=== PATIENT | female | born 1970 | race Caucasian/White ===

== ENCOUNTER 2016-05-15 13:16 | Day surgery (SDC) | payer OTHER ==
[~2016-05-15 13:16] MED LIST: APRACLONIDINE HCL 50 DROP BTL LEFTEYE PRN; HYPROMELLOSE 150 DROP BTL LEFTEYE PRN; TETRACAINE HCL 150 DROP BTL LEFTEYE PRN
--- OUTSIDE RECORDS SUMMARY | 2016-05-15 13:20 | XMS REPORT | Continuity of Care Document ---
:1970 Author Organization [facility] ([facility]) Address [address] [place] [address] Phone [phone] Care Team Providers Name Role Phone Melissa [facility] Primary Care Provider + [phone] Source Comments This disclosure is being made pursuant to the Care Everywhere program, applicable federal and state laws, and may not contain all informaitonavailable regarding this patient.[facility] ([facility]) Active Allergies and Adverse Reactions Allergen Noted Date Severity Reactions Comments Gabapentin 04/26/2015 Pruritus Nifedipine 07/18/2013 OTHER Leg swelling/"burned from inside out"/ redness Current Medications Prescription Sig. Disp. Refills Start Date End Date Status naproxen 500 mg tablet Take 1 Tab by mouth 2 60 Tab 4 12/24/2012 Active times daily with meals as needed. Take instead of ibuprofen. Indications: PAIN pantoprazole 40 mg EC Take 1 Tab by mouth 60 Tab 2 12/24/2012 Active tablet Every morning. Indications: GASTROESOPHAGEAL REFLUX traMADol 50 mg tablet 1 04/22/2015 Active DEX[address] 5 03/21/2015 Active capsule PARoxetine 20 mg tablet 3 03/26/2015 Active cyclobenzaprine 10 mg 5 04/22/2015 Active tablet nortriptyline 25 mg 50 mg. 2 04/04/2015 Active capsule nortriptyline 10 mg 0 03/01/2015 Active capsule doxepin 25 mg capsule 3 04/23/2015 Active polyethylene glycol 1 04/23/2015 Active 3350 (MIRALAX) 17 gram/dose powder hydroxychloroquine 200 1 tablet daily. 2 11/26/2015 Active mg tablet LORazepam 0.5 mg tablet Take 0.5 mg by mouth Active daily as needed. topiramate 25 mg tablet Take 25 mg by mouth 2 Active times daily. 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 Health counseling 12/24/2012 GERD (gastroesophageal reflux disease) 12/24/2012 Neck pain 12/24/2012 LBP (low back pain) 12/24/2012 Immunizations Name Dates Previously Given Next Due Influenza, quadrivalent 01/27/2014 Influenza, quadrivalent PF 12/24/2012 Influenza, unspecified 12/14/2015 Social History Tobacco Use Types Packs/Day Years Used Date Never Smoker Smokeless Tobacco: Never Used Alcohol Use Drinks/Week oz/Week Comments No Last Filed Vital Signs Vital Sign Reading Time Taken Blood Pressure 115/73 12/15/2015 9:28 AM CDT Pulse 81 12/15/2015 9:28 AM CDT Temperature 36.1 C (97 F) 12/15/2015 9:28 AM CDT Respiratory Rate - - Height 1.613 m (5' 3.5") 12/15/2015 9:28 AM CDT Weight 66.5 kg (146 lb 9.7 oz) 12/15/2015 9:28 AM CDT Body Mass Index 25.56 12/15/2015 9:28 AM CDT Oxygen Saturation 99% 04/26/2015 8:15 AM WAITER/WAITRESS BAR Plan of Care Patient Goal Type Goal Diet Have 3 meals a day Health Maintenance Due Date Last Done Comments Hepatitis B Vaccine (1 of 3 - 1970 Primary Series) Tdap Vaccine 1980 MMR Vaccine 06/18/1987 Td Vaccine 06/18/1987 Cervical Cancer Screening 06/18/1999 Mammogram 2009 Lipid Disorder Screening 12/24/2017 12/24/2012 Influenza Vaccine: Seasonal Completed 12/14/2015, 01/27/2014, 12/24/2012 Results from Last 3 Months Not on file
[2016-05-15 13:49] VITALS: BP 120/70
== END 2016-05-15 13:17 | disposition home or self-care (01) ==
LOC: AMB 13:16
PROVIDERS: ATTEND Ophthalmology
PROC: 08CDXZZ Extirpation of Matter from Left Iris, External Approach (ICD-10-PCS; principal; 2016-05-15 12:45)
DX: H40.032 Anatomical narrow angle, left eye (principal)